=== PATIENT | female | born 1970 | race African-American/Black ===

== ENCOUNTER 2021-04-06 17:59 | Emergency (ER) | payer OTHER ==
[~2021-04-06] VITALS: Ht 167.6 cm; Wt 150.0 kg
[2021-04-06 18:08] VITALS: BP 131/96
[2021-04-06] MEDS ORDERED: CYCLOBENZAPRINE 10MG TABLET PO ONE (20:45)
[2021-04-06] MEDS ORDERED: ACETAMINOPHEN 325MG TABLET PO ONE (20:45)
[2021-04-06] MEDS ORDERED: CYCL10TA7 PO (21:02)
[2021-04-06] MEDS ORDERED: ACET-2708 MT (21:02)
== END 2021-04-06 22:06 | disposition home or self-care (01) ==
LOC: ER 17:59
DX: S29.012A Strain of muscle and tendon of back wall of thorax, initial encounter (principal); V43.52XA Car driver injured in collision with other type car in traffic accident, initial encounter; Y93.89 Activity, other specified; Y92.488 Other paved roadways as the place of occurrence of the external cause
CPT/HCPCS: 99281